=== PATIENT | female | born 1985 | race Native Hawaiian/Other Pacific Islander ===

== ENCOUNTER 2016-10-21 15:35 | Emergency (ER) | payer OTHER ==
[~2016-10-21] VITALS: Ht 165.1 cm; Wt 108.9 kg
[2016-10-21] MEDS ORDERED: ARMOUR THYRO180 MG PO (15:54)
[2016-10-21] MEDS ORDERED: PERCOCET1 TA3 PO (15:54)
[2016-10-21 16:20] LABS: PLATELET COUNT 184 K/uL (152-353)
[2016-10-21 17:12] VITALS: BP 134/87; TEMP 98
== END 2016-10-21 17:45 | disposition home or self-care (01) ==
LOC: ED 15:35
DX: M32.9 Systemic lupus erythematosus, unspecified (principal); R10.84 Generalized abdominal pain
CPT/HCPCS: 36415; 80307; 81000; 85027; 99282; G0479